=== PATIENT | male | born 1950 | race Native Hawaiian/Other Pacific Islander ===

== ENCOUNTER 2017-03-16 12:51 | Emergency (ER) | payer OTHER ==
[2017-03-16] MEDS ORDERED: IOPAMIDOL 370 (76%) 100 ML VIAL IV ONE ×2 (12:52)
[2017-03-16 13:19] LABS: ABSOLUTE NEUTROPHIL COUNT 4.7 K/mm3 (1.8-7.7); BASO # 0.1 K/mm3 (0.0-0.2); BASO % 1.1 % (0.2-1.0); EOS # 0.4 (0.0-0.5); EOS % 4.5 % (0.9-2.9); HEMOGLOBIN 16.7 gm/l (14.0-18.0); IMM NEUT% 0.2 % (0-1); LYMPH # 2.4 (1.0-4.8); LYMPH % 29.5 % (15-45); MEAN CELL VOLUME 90.9 fl (80.0-94.0); MEAN CORPUSCULAR HEMOGLOBIN 31.6 pg (27.0-31.0); MEAN CORPUSCULAR HGB CONC 34.8 g/dl (33.0-37.0); MEAN PLATELET VOLUME 9.6 fl (7.4-10.4); MONO # 0.5 (0.0-0.8); MONO % 6.4 % (4-12); NEUT % 58.3 % (43-75); PLATELET COUNT 227 K/mm3 (130-400); RED CELL DISTRIBUTION WIDTH 12.1 % (11.5-14.5)
[2017-03-16 13:22] LABS: INR 1.04; PROTHROMBIN TIME 10.9 SECONDS (9.3-11.4)
[2017-03-16 13:35] LABS: ALB/GLOB RATIO 1.5 (>1.0); ALBUMIN 4.1 gm/dL (3.5-5.7); CALCIUM 9.1 mg/dL (8.6-10.3)
--- NOTE | 2017-03-16 13:35 | CT ---
CTA HEAD W/ POST PROCESS COMPARISON: Head CT without contrast, 03/16/2017 HISTORY: Acute onset numbness and left leg with imbalance. Suspected stroke that began 2 hours ago. TECHNIQUE: [employer] Aqu[employer] [address] scanner. Unenhanced images obtained through the head. Intravenous injection 80 mL 370. Contrast-enhanced images obtained. Under concurrent supervision and interpretation, requiring a separate 3-D workstation, the pharmacy technologist created 3-D CT angiograms. An automated dose reduction technique was used to minimize patient radiation dose. Dose information: CTDIvol (mGy): 62.80 DLP(mGycm): 2613.10 FINDINGS: Dural sinuses: Normal. 3-D CT angiogram findings: No vessel occlusion. Normal [place]. No arteriovenous malformation. No aneurysm. IMPRESSION: Normal study. The results were discussed with Jaime Hilliard M.D., 03/16/2017 at 13:32
--- NOTE | 2017-03-16 13:35 | CT ---
CTA CAROTID W/ POST PROCESS COMPARISON: None. HISTORY: Acute onset stroke symptoms 2 hours ago. TECHNIQUE: [employer] Aquilion [address] scanner. Intravenous injection 80 mL Isovue-370. Contrast-enhanced images obtained from the aortic arch to the skull base. Under concurrent supervision and interpretation, requiring a separate 3-D workstation, the electroencephalograph technologist created 3-D CT angiograms. An automated dose reduction technique was used to minimize patient radiation dose. Dose information: CTDIvol (mGy): 62.80 DLP(mGycm): 2613.10 FINDINGS: Aortic arch: Normal. Brachiocephalic artery: Normal. Right common carotid artery: Normal. Right internal carotid artery: Minimal nonocclusive plaque. Right external carotid artery: Normal. Right vertebral artery: Normal. Right subclavian artery: Normal. Left subclavian artery: Normal. Left common carotid artery: Normal. Left internal carotid artery: Minimal nonocclusive plaque. Left external carotid artery: Normal. Left vertebral artery: Normal. Internal jugular veins: Normal. Airway: Normal Lymph nodes: Normal Salivary glands: Normal Thyroid gland: Normal. Muscles: Normal. Spine: Moderate degenerative changes of the cervical and upper thoracic spine. Superior mediastinum: Normal Lung apices: Normal. IMPRESSION: 1. Normal CT angiogram of the neck. Minimal nonocclusive plaquing at the proximal internal carotid arteries. The report was discussed with Jaime Hilliard M.D. 03/16/2017 at 13:32
--- NOTE | 2017-03-16 13:36 | CT ---
HEAD W/O CON COMPARISON: None HISTORY: The patient reports, "I started feeling pressure in the head, left leg and foot filled none and tingling, moderate arm with tingling too. I felt sick to my stomach, with difficulty walking straight line because of imbalance.) The symptoms started 2 hours ago. Suspected stroke. TECHNIQUE: Using a [employer] Aquilion [address] scanner, images were obtained through the head. An automated dose reduction technique was used to minimize patient radiation dose. DOSE INFORMATION: CTDIvol (mGy): 34.40 DLP(mGycm): 665.00 FINDINGS: Mass: None Intracranial Hemorrhage: None Acute Infarction: None Cerebral hemispheres: Normal Basal ganglia: Normal Thalami: Normal Brainstem: Normal Cerebellum: Normal Ventricles: Normal Basilar cisterns: Normal Corpus callosum: Normal Pituitary fossa: Normal Middle ears and mastoid air cells: Normal Orbits and sinuses: Normal Skull and scalp: Normal Dural sinuses and vessels: Normal IMPRESSION: Normal study. The results were discussed with Jaime Hilliard M.D., 03/16/2017 at 13:32
== END 2017-03-16 16:02 | disposition home or self-care (01) ==
LOC: SUPCPDRO 12:51 → ED 12:51
DX: I63.9 Cerebral infarction, unspecified (principal); I10 Essential (primary) hypertension; E11.9 Type 2 diabetes mellitus without complications; Z79.84 Long term (current) use of oral hypoglycemic drugs
CPT/HCPCS: 85025; 80053; 85610; 85651; 70450; 70496; 70498; 99285 ×2; 93005; Q9967 ×2